=== PATIENT | male | born 1945 | race Caucasian/White ===

== ENCOUNTER 2024-10-29 08:30 | Day surgery (SDC) | payer OTHER ==
--- NOTE | 2024-10-24 09:17 | RAD REPORT ---
EXAM: Chest Pa And Lat (2 Views) HISTORY: 79 years Male Pre-op pending heart catheterization COMPARISON: 06/15/19 FINDINGS: LUNGS/PLEURA: The lungs are clear. No pleural effusions or pneumothorax. No pulmonary edema. MEDIASTINUM: The mediastinal silhouette is within normal limits CARDIAC: The cardiac silhouette is within normal limits. UPPER ABDOMEN: No significant abnormality. BONES: No acute abnormality. Remote right-sided rib fractures. LINES/TUBES/OTHER: N/A IMPRESSION: No evidence of acute cardiopulmonary disease.
[2024-10-24 09:21] LABS: Absolute Basophils 0.1 K/uL (0-0.5); Absolute Eosinophils 0.1 K/uL (0-0.5); Absolute Lymphocytes (CBC) 10.6 K/uL (0.7-4.9); Absolute Monocytes 0.4 K/uL (0.1-1.3); Absolute Neutrophil 6.7 K/uL (1.8-8.0); Basophils % 0.4 % (0-1.3); Eosinophils % 0.7 % (0-4.4); Hemoglobin 14.1 g/dL (13.6-17.9); MCH 31.3 pg (27.0-35.0); MCHC 33.5 g/dL (32.0-36.0); MCV 93.4 fL (80-100); MPV 8.7 fL (7.6-11.3); Monocytes % 2.5 % (3.3-12.3); Neutrophils % 37.4 % (41.7-73.7); Nucleated Red Blood Cells % 0.1 % (0-0); Platelets 132 thou/uL (152-406); Red Cell Distribution Width 15.1 % (12.1-15.2)
[2024-10-24 09:33] LABS: PT Prothrombin Time 10.9 SECONDS (9.4-12.5); PTT, Activated Partial Thromb 30.7 SECONDS (24.3-36.9); Protime INR 1.04
[2024-10-24 09:37] LABS: Anion Gap 9.6 mEq/L (5.0-15.0); Potassium 4.6 mEq/L (3.5-5.1)
[2024-10-24 11:13] LABS: Differential Total Cells Count 100; Segmented Neutrophils 35 % (40-80)
[2024-10-24 11:14] LABS: Atypical Lymphocytes 50 %; Blood Morphology Comment NOT SEEN (NOT SEEN); Eosinophils 2 % (0-3); Lymphocytes 7 % (15-42); Monocytes 6 % (0-10); Platelet Estimate DECR; Smudge Cells MANY
--- NOTE | 2024-10-28 12:18 | EKG ---
Test Date: 2024-10-24 Test Time: 09:52:47 Unit [employer]: RENE MEASUREMENT RESULTS: Intervals: Rate: 61 CO: 166 QRSD: 100 QT: 388 QTc: 390 [place]: P: 72 CO: 166 QRS: -43 T: 65 INTERPRETIVE STATEMENTS: Normal sinus rhythm Left axis deviation Low voltage QRS Abnormal ECG No previous ECG available for comparison Electronically Signed On 10-28-24 12:13:07 STOCKROOM COORDINATOR by Michael Norton
[2024-10-29] MEDS ORDERED: NA CHLORIDE 0.9% 500 ML ONE (08:33)
[2024-10-29] MEDS ORDERED: MIDAZOLAM HCL 2 MG/2 ML INJ ONE (09:09)
[2024-10-29] MEDS ORDERED: LIDOCAINE 1% 20 ML MDV ONE (09:09)
[2024-10-29] MEDS ORDERED: HEPA 1000U/500MLS 2,000 UNIT/1,000 ML BAG IV ONE (09:09)
[2024-10-29] MEDS ORDERED: ATROPINE SULF 1 MG/10 ML SYR IV ONE (09:09)
[2024-10-29] MEDS ORDERED: HEPARIN 10,000 UNIT/10 ML VIAL IV ONE (09:09)
[2024-10-29] MEDS ORDERED: CLOPIDOGREL 75 MG TABLET ONE (09:10)
[2024-10-29] MEDS ORDERED: ASPIRIN 325 MG TAB ONE (09:10)
[2024-10-29] MEDS ORDERED: HEPARIN 5000 UNIT/ML 1 ML VIAL ONE (09:10)
[2024-10-29] MEDS ORDERED: FENTANYL CITR 100 MCG/2 ML ONE (09:10)
[2024-10-29] MEDS ORDERED: TICAGRELOR 90 MG TABLET PO ONE (09:10)
[2024-10-29 14:54] VITALS: BP 117/63; O2SAT 99
--- NOTE | 2024-10-29 21:00 | OP ---
Date of Procedure: 10/29/2024 Surgeon: Michael Norton Procedures Performed: 1. Left heart catheterization. 2. Selective coronary angiogram. 3. Percutaneous coronary intervention of the right coronary artery with Synergy 4.0 x 28 mm drug-elut ing stent. Indication For Procedure: Chest pains with abnormal stress test. Complications: None. Estimated Blood Loss: Less than 50 cc. Access: Right radial, closed by TR band. Sedation Time: 30 minutes with 1 of Versed and 50 of fentanyl. Description Of Procedure: After risks, benefits, and alternatives were explained to the patient, the patient agreed to proceed with procedure and signed informed consent. The patient was brought back to the dental laboratory manager, prepped and draped in a sterile fashion. Time-out was performed. Sedation was admi nistered. Next, the right radial access was obtained using an ultrasound-guided micropuncture techni que. A [place] 4 catheter was advanced over the J-wire to the LV cavity. LVEDP was obtained. Pullbac k did not show any gradient. Same catheter was used for selective angiogram of the left and right co ronary systems. After that, catheter was exchanged with a JR4 guide. Heparin was administered. ACT was therapeutic. Runthrough wire was passed across the lesion. We pre-dilated the lesion with an N C 3.0 mm balloon. Next, Synergy 4.0 x 28 mm drug-eluting stent was placed across the lesion. This w as postdilated with NC 4.5 mm balloon. Final angiogram shows ZUNILDA-3 flow. At the end of procedures, catheter was removed over a J-wire. Sheath was removed. TR band was applied, hemostasis was achiev ed, and the patient was moved back to recovery room in stable condition. Findings: 1. Left main: Normal. 2. LAD: Proximal, mild luminal irregularities with mid 30% disease, then mild luminal irregularities . 3. Left circumflex: Mild luminal irregularities. 4. RCA: Ostial, mild luminal irregularities. Then, proximal to mid 60% to 70% disease, status post PCI with Synergy 4.0 x 28 mm drug-eluting stent. Distal, mild luminal irregularities. RPDA/RPLV, mi ld luminal irregularities. 5. LVEDP: 5 mmHg. Assessment And Plan: 1. Significant proximal to mid right coronary artery disease, status post percutaneous coronary inter vention with Synergy 4.0 x 28 mm drug-eluting stent. 2. Mild mid left anterior descending disease. 3. Aspirin 81 mg daily for life. 4. Brilinta 180 x1 was given in the dental laboratory manager, continue Brilinta 90 mg p.o. b.i.d. for 12 months. 5. Continue aggressive medical treatment for coronary artery disease. YESSICA/MARCIAL Voice ID: [id number] Report ID: [id number]
== END 2024-10-29 14:30 | disposition home or self-care (01) ==
LOC: CCL 08:30
PROVIDERS: ATTEND Internal Medicine Interventional Cardiology
DX: I25.10 Atherosclerotic heart disease of native coronary artery without angina pectoris (principal); I65.21 Occlusion and stenosis of right carotid artery; I10 Essential (primary) hypertension; E78.2 Mixed hyperlipidemia; E03.9 Hypothyroidism, unspecified; Z87.891 Personal history of nicotine dependence; Z79.899 Other long term (current) drug therapy; Z82.49 Family history of ischemic heart disease and other diseases of the circulatory system
CPT/HCPCS: 36415; 71046; 76937; 80048; 85025; 85347; 85610; 85730; 93005; 93458; 99152; C1725; C1893; C9600; J0461; J1644; J2003; J2250; J3010; J7040; Q9967